=== PATIENT | female | born 1975 | race Hispanic/Latino ===

== ENCOUNTER 2025-06-24 09:27 | Emergency (ER) | payer OTHER ==
[~2025-06-24] VITALS: Ht 172.7 cm; Wt 115.9 kg
[2025-06-24] MEDS: LACTATED RINGERS 1000ML 1,000 ML IV ONE (09:42)
--- NOTE | 2025-06-24 09:51 | HMCIMG ---
CHEST 1VW REASON: cp COMPARISON: None. FINDINGS: Single view of the chest was obtained. Lungs are clear. Heart size is normal. There is no pulmonary vascular congestion. Mediastinum and bony thorax appear unremarkable. IMPRESSION: 1. Normal single view chest x-ray.
[2025-06-24 09:59] LABS: IMMATURE GRANULOCYTE ABSOLUTE 0.04 K/uL (0-1); NUCLEATED RED BLOOD CELLS 0.0 % (0.0-0.19); PLATELET COUNT (AUTO) 288 K/uL (130-400); RED BLOOD CELL COUNT(AUTO) 4.31 MIL/uL (4.00-5.50); RED CELL DISTRIBUTION WIDTH 12.7 % (11.0-15.5); WHITE BLOOD COUNT (AUTO) 10.4 K/uL (4.8-10.8)
[2025-06-24 10:03] LABS: APPEARANCE,URINE CLEAR (CLEAR); GLUCOSE, URINE (UA) NEGATIVE (NEGATIVE); LEUKOCYTE ESTERASE ,URINE NEGATIVE Leu/uL (NEGATIVE); NITRATE,URINE NEGATIVE (NEGATIVE); OCCULT BLOOD,URINE NEGATIVE (NEGATIVE)
[2025-06-24 10:07] LABS: ADD UA MICROSCOPIC NO
[2025-06-24 10:13] LABS: CREATINE KINASE, TOTAL 69.0 U/L (21-232); CREATININE 0.7 mg/dL (0.5-1.0); GLOMERULAR FILTR. RATE CALC 105.0 mL/min (>90); GLUCOSE,RANDOM 107.0 mg/dL (70-105); SODIUM SERUM 133.0 mmol/L (136-145); UREA NITROGEN, BLOOD 5.0 mg/dL (7-18)
[2025-06-24] MEDS: MAG/ALUM/SIMETH 30 ML UDCUP PO ONE (10:39)
[2025-06-24] MEDS: LIDOCAINE HCL 2% VISCOUS 15 ML UDCUP PO ONE (10:39)
--- NOTE | 2025-06-24 11:06 | EKG ---
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
--- NOTE | 2025-06-24 11:46 | HMCIMG ---
CT ABDOMEN/PELVIS W/O CONTRAST REASON: lower abd pain COMPARISON: None. FINDINGS: Lung bases are clear . There is coronary calcification suggesting of coronary artery disease.. There are no focal liver lesions. There are normal-appearing kidneys.. Spleen and pancreas appear unremarkable. The gallbladder is surgically absent with clips in the gallbladder fossa.. Bowel loops appear unremarkable. This includes normal appearance of the appendix There is no evidence of free fluid or intraperitoneal air. There are no focal fluid collections. Aorta and retroperitoneum appear normal as do pelvic soft tissue structures. The anterior abdominal wall is intact. Osseous structures appear unremarkable. There is mild to moderate multilevel disc disease involving the lower lumbar spine most pronounced at L4-L5 bilaterally L5-S1 followed by L3-L4. Pelvis demonstrate patient is status post hysterectomy.. There is no mass or free fluid seen in pelvis IMPRESSION: 1. No acute process seen in CT of abdomen and pelvis without intravenous contrast 2. Early coronary calcifications suggesting coronary artery disease. CT was performed with one or more following dose reduction techniques: automated exposure control, adjustment of the mA and kv according to patient's size, or use of a iterative reconstruction technique.
[2025-06-24] MEDS ORDERED: LACT-356 PO (11:58)
--- NOTE | 2025-06-24 11:59 | ERN ---
General Chief Complaint: Fatigue Stated Complaint: FATIGUE Time Seen by MD: 09:29 Source: patient History of Present Illness Initial Comments Patient is a 50-year-old female coming in with multiple complaints. Per patient she has been having episodes of abdominal discomfort was diagnosed with inflammation and was given medication. Per patient this has been ongoing for several years. In the last month symptoms resurface and patient was seen by analysis internship was prescribed medication and she states that the symptoms improved but not completely gone away. Along with the generalized abdominal discomfort she states that at times she has severe tenderness in the lower abdominal region. Allergies: Coded Allergies: Alpha-Gal ([id number] (Unverified Allergy, Unknown, 06/24/25) Past Medical History Past Medical History: Other Medical History Other: covid Past Surgical History: Hysterectomy, Cholecystectomy ROS Dictation CONSTITUTIONAL: No chills, no fever, no weakness, no diaphoresis, no malaise. HEAD/FACE: No signs of trauma. EENT: No eye pain, no blurred vision, no tearing, no double vision, no ear pain, no ear discharge, no nose pain, no nasal congestion, no throat pain, no throat swelling, no mouth pain. RESPIRATORY: No cough, no orthopnea, no SOB, no stridor, no wheezing. CARDIOVASCULAR: No chest pain, no edema, no palpitations, no syncope. GASTROINTESTINAL/ABDOMINAL: abdominal pain, no constipation, no diarrhea, no nausea, no vomiting. GENITOURINARY: No abnormal discharge, no dysuria, no frequent urination, no hematuria. No complaints of pain in the genitals. MUSCULOSKELETAL: No back pain, no gout, no joint pain, no joint swelling, no muscle pain, no muscle stiffness, no neck pain. INTEGUMENTARY: No change in color, no change in hair/nails, no dryness, no lesion, no lumps, no rash. NEUROLOGICAL/PSYCH: No anxiety, not depressed, no emotional problem, no headache, no numbness, no pre-existing deficit, no history of seizures, no tremors, no weakness. HEMATOLOGIC/LYMPHATIC: Not anemic, no history of blood clots, no apparent bleeding, no bruising, glands not swollen. All Systems Negative, Except as Noted. Physical Exam Physical Exam Dictation VITAL SIGNS: Reviewed. GENERAL APPEARANCE: Alert, oriented x3, no acute distress, obese. HEAD AND FACE: Non-traumatic. EYES: PERRL, pink conjunctivas, eyelid no trauma, anterior chamber clear. EARS: Pinnas intact and no signs of trauma or erythema. Ear canals clear and no discharge. TMs no erythema. NOSE: No discharge, no bleeding. OROPHARYNX: Mouth normal, teeth no caries, tongue pink. Pharynx clear, no erythema. Tonsils no exudates, no abscesses noted. Mucous membrane moist. NECK: Supple, non-tender, no thyromegaly, no masses, no JVD, no bruits. BREAST: Deferred. CHEST: No tenderness, no crepitus, no paradoxical movement, no retractions. LUNGS: Clear, well-ventilated, symmetric, no rales, no wheezing, no rhonchi, no stridor, good breath sounds bilaterally. HEART: Regular rate, regular rhythm, no murmur, no gallops. VASCULAR: No peripheral edema. ABDOMEN: Soft, positive bowel sounds, nondistended, no guarding, generalized abdominal tender, no rebound, no masses no hepatomegaly, no splenomegaly, no Boland's sign, no hernias. RECTAL: Deferred. GENITAL: Deferred. NEUROLOGICAL: Normal speech, gross motor function intact, gross sensory function intact. MUSCULOSKELETAL: Neck nontender, full range of motion, back nontender, full range of motion. EXTREMITIES: Nontender, full range of motion. SKIN: Color pink, dry, no turgor, no rash, no lacerations, no abrasions, no contusions. LYMPHATICS: Deferred. Results Laboratory and Microbiology Lab and Micro Result Laboratory Tests Test 06/24/25 09:45 06/24/25 09:46 White Blood Count 10.4 K/uL (4.8-10.8) Red Blood Count 4.31 MIL/uL (4.00-5.50) Hemoglobin 13.3 g/dL (12.0-16.0) Hematocrit 39.1 % (36-48) Mean Corpuscular Volume 90.7 fL (79-99) Mean Corpuscular Hemoglobin 30.9 pg (27.0-33.0) Mean Corpuscular Hemoglobin Concent 34.0 g/dL (32.0-36.0) Red Cell Distribution Width 12.7 % (11.0-15.5) Platelet Count 288 K/uL (130-400) Mean Platelet Volume 9.3 fL (7.5-10.5) Immature Granulocyte % (Auto) 0.4 % (0-1) Neutrophils (%) (Auto) 53.0 % (40.0-77.0) Lymphocytes (%) (Auto) 36.2 % (21.0-51.0) Monocytes (%) (Auto) 9.8 % (3.0-13.0) Eosinophils (%) (Auto) 0.3 % (0.0-8.0) Basophils (%) (Auto) 0.3 % (0.0-5.0) Neutrophils # (Auto) 5.5 K/uL (1.8-7.7) Lymphocytes # (Auto) 3.8 K/uL (1.0-4.8) Monocytes # (Auto) 1.0 K/uL (0.1-1.0) Eosinophils # (Auto) 0.03 K/uL (0.00-0.70) Basophils # (Auto) 0.03 K/uL (0.00-0.20) Absolute Immature Granulocyte (auto 0.04 K/uL (0-1) Nucleated Red Blood Cells 0.0 % (0.0-0.19) Sodium Level 133 mmol/L (136-145) L Potassium Level 3.8 mmol/L (3.5-5.1) Chloride Level 97 mmol/L (101-111) L Carbon Dioxide Level 30 mmol/L (21-32) Blood Urea Nitrogen 5 mg/dL (7-18) L Creatinine 0.7 mg/dL (0.5-1.0) Glomerular Filtration Rate Calc 105 mL/min (>90) Random Glucose 107 mg/dL (70-105) H Total Calcium 9.2 mg/dL (8.5-10.1) Magnesium Level 2.00 mg/dL (1.80-2.40) Total Creatine Kinase 69 U/L (21-232) Troponin I High Sensitivity < 4 ng/L (4-50) L Urine Color COLORLESS (YELLOW) Urine Appearance CLEAR (CLEAR) Urine pH 7.0 (5.0-8.0) Urine Specific Trosper 1.001 (1.001-1.031) Urine Protein NEGATIVE mg/dL (NEGATIVE) Urine Glucose (UA) NEGATIVE mg/dL (NEGATIVE) Urine Ketones NEGATIVE mg/dL (NEGATIVE) Urine Occult Blood NEGATIVE (NEGATIVE) Urine Nitrate NEGATIVE (NEGATIVE) Urine Bilirubin NEGATIVE mg/dL (NEGATIVE) Urine Urobilinogen 0.2 mg/dL (0.2-1.0) Urine Leukocyte Esterase NEGATIVE [place]/uL Labs Reviewed?: Yes EKG/XRAY/US/CT/MRI EKG Comment 06/24/2025 time 9:56 a.m. Ventricular rate 65 Sinus rhythm SC [address] wave elevation or depression CT Scan Comment [facility] [place] [place] [address] [place] [address] IMAGING REPORT Signed PATIENT: LUIS MORA MR#: [id number] : 1975 SEX: F AGE: 50 LOCATION: [facility] ORDER [id number] STATUS: REG REPORT#: [id number] SERVICE 1027 REASON: lower abd pain ORDERING PHYSICIAN: NORBERTO CRAIN MD PROCEDURE: ABD PEL WO - CT ABDOMEN/PELVIS W/O CONTRAST CT ABDOMEN/PELVIS W/O CONTRAST REASON: lower abd pain COMPARISON: None. FINDINGS: Lung bases are clear . There is coronary calcification suggesting of coronary artery disease.. There are no focal liver lesions. There are normal-appearing kidneys.. Spleen and pancreas appear unremarkable. The gallbladder is surgically absent with clips in the gallbladder fossa.. Bowel loops appear unremarkable. This includes normal appearance of the appendix There is no evidence of free fluid or intraperitoneal air. There are no focal fluid collections. Aorta and retroperitoneum appear normal as do pelvic soft tissue structures. The anterior abdominal wall is intact. Osseous structures appear unremarkable. There is mild to moderate multilevel disc disease involving the lower lumbar spine most pronounced at L4-L5 bilaterally L5-S1 followed by L3-L4. Pelvis demonstrate patient is status post hysterectomy.. There is no mass or free fluid seen in pelvis IMPRESSION: 1. No acute process seen in CT of abdomen and pelvis without intravenous contrast 2. Early coronary calcifications suggesting coronary artery disease. CT was performed with one or more following dose reduction techniques: automated exposure control, adjustment of the mA and kv according to patient's size, or use of a iterative reconstruction technique. DICTATED BY: BRANDIN MCKEON MD DATE: 06/24/25 1141 ELECTRONICALLY SIGNED BY: BRANDIN MCKEON MD DATE: 06/24/25 1146 [facility] MDM: Differential diagnosis: Chronic abdominal pain, gastritis, GERD, IBS, NSTEMI, Rationale: Tests considered and ordered secondary to shared decision making include: Previous outside records reviewed: Old ER visits. Risk of complication and/or morbidity or mortality of patient management: None Medications-Per medication reconciliation Need for hospitalization: Patient does not meet criteria for hospitalization. Patient is a 50-year-old female coming in with multiple complaints. Patient states that she has had chronic abdominal pain for many years and attributes this to getting infected with COVID. Patient also states that she has been feeling very weak and has not been tolerating intake. She states that she is able to consume liquids but not solids. Along with this she states that she was placed on some medication by analysis internship and years ago when she was 1st diagnosed with chronic abdominal pain she was prescribed some medication medication at the time worked this time she states that they has been were completely the same and believes it might be due to low mg prescribed this time. Because patient initially also presented with chest pain cardiac workup needed to be performed along with this patient complained of lower abdominal pain which has been worsening in the last couple of days. Laboratory workup and CT did not disclose acute findings. I did advised her appropriate follow up with a analysis internship for long-term management since he has been complaining of these symptoms in the past. ED Course Orders Procedure Category Date Status Time Cbc With Differential LAB 06/24/25 Complete 09:36 Chest 1vw RAD 06/24/25 Resulted 09:36 12 Lead Ekg Tracing- EKG 06/24/25 Complete Technical 09:36 Lactated Ringers PHA 06/24/25 Complete 1000ml (Lactated 10:00 Magnesium LAB 06/24/25 Complete 09:36 Creatine Kinase, Total LAB 06/24/25 Complete 09:36 Troponin I High LAB 06/24/25 Complete Sensitivity 09:36 Urinalysis Profile LAB 06/24/25 Complete 09:36 Basic Metabolic Panel LAB 06/24/25 Complete 09:36 Lidocaine Hcl 2% PHA 06/24/25 Complete Viscous (Lidocaine Hcl 10:30 Mag/Alum/Simeth 30ml PHA 06/24/25 Complete (Maalox Plus 30ml) 10:30 Pantoprazole 40mg Inj PHA 06/24/25 Complete (Protonix 40mg Inj 10:30 Ct Abdomen/Pelvis W/O CT 06/24/25 Resulted Contrast 10:27 Current Medications Medications (Trade) Dose Ordered Sig/Rachel Route PRN Reason Start Time Stop Time Status Last Admin Dose Admin Al Hydroxide/Mg Hydroxide (MAALox PLUS 30ML) 30 ml ONCE ONCE PO 06/24/25 10:30 06/24/25 10:31 DC 06/24/25 10:39 Lactated Ringer's 1,000 ml @ 0 mls/hr ONCE ONCE IV 06/24/25 10:00 06/24/25 10:01 DC 06/24/25 09:42 Lidocaine HCl (Lidocaine HCl 2% Viscous) 10 ml ONCE ONCE PO 06/24/25 10:30 06/24/25 10:31 DC 06/24/25 10:39 Pantoprazole Sodium (PROTonix 40MG INJ) 40 mg ONCE ONCE IVP 06/24/25 10:30 06/24/25 10:31 DC 06/24/25 10:39 Vital Signs Date Time Temp Pulse Resp B/P (MAP) Pulse Ox O2 Delivery O2 Flow Rate FiO2 06/24/25 09:32 97.9 80 20 163/93 99 Room Air* 0 21 06/24/25 09:30 97.9 80 20 163/93 99 Room Air 0 DX & DISP Disposition: Discharge Departure Impression: Primary Impression: Chronic abdominal pain Additional Impression: Anxiety Condition: Stable Scripts Lactobacillus Acidophilus (Acidophilus Probiotic) 500 Million Cell Capsule 1 CAP PO BID for 7 Days, #14 CAP 0 Refills Prov: NORBERTO CRAIN MD 06/24/25 Additional Instructions: FOLLOW-UP WITH PRIMARY CARE PROVIDER IN 1 TO 2 DAYS. TAKE MEDICATIONS DIRECTED HERE IN THE EMERGENCY ROOM. OKAY TO CONTINUE HOME MEDICATIONS UNLESS OTHERWISE DISCUSSED DURING YOUR VISIT IN THE EMERGENCY ROOM TODAY. RETURN TO YOUR NEAREST EMERGENCY ROOM IF SYMPTOMS WORSEN OR IF THERE IS NO IMPROVEMENT. CALL 911 IF YOU NEED IMMEDIATE ASSISTANCE. TAKE TYLENOL [id number] NEEDED AND IF NO CONTRAINDICATIONS ARE PRESENT. INCREASE ORAL HYDRATION. A WOUND CULTURE OR URINE CULTURE WAS ORDERED HERE IN THE EMERGENCY ROOM DEPARTMENT PLEASE FOLLOW-UP WITH PRIMARY CARE PROVIDER AND ADVISE THEM TO GET REPORTS FROM OUR FACILITY. IF YOU HAD ANY NILES WRAP/SPLINTS THAT WERE APPLIED HERE, PLEASE DO NOT REMOVE THEM UNTIL YOU SEE YOUR PRIMARY CARE OR SPECIALTY. Referrals: Referrals: SELF,REFERRAL (PCP) JASS DUBOIS MD Time of Disposition: 11:58 NORBERTO CRAIN MD Jun 24, 2025 11:59
[2025-06-24 12:18] VITALS: BP 147/82; PULSE 77; RESP 16; TEMP 98.1; O2SAT 99
== END 2025-06-24 12:20 | disposition home or self-care (01) ==
LOC: EDH 09:27
DX: G89.29 Other chronic pain (principal); R10.84 Generalized abdominal pain; F41.9 Anxiety disorder, unspecified; Z86.16 Personal history of COVID-19; Z90.49 Acquired absence of other specified parts of digestive tract; Z90.710 Acquired absence of both cervix and uterus
CPT/HCPCS: 99285; 74176; 96374; 71045; 96361; 82550; 83735; 84484; 80048; 85025; 81003; 36415; 93005; J7120; J2470